=== PATIENT | female | born 1950 | race Caucasian/White ===

== ENCOUNTER 2018-01-22 15:22 | Inpatient (IN) | payer MEDICARE, OTHER ==
[2018-01-22 15:39] LABS: ADD MAN DIFF? NO
[2018-01-22 15:45] LABS: BASOPHILS % 0.5 % (0.0-2.0); EOSINOPHILS # 0.1 10^3/ul (0.0-0.5); EOSINOPHILS % 1.7 % (0.0-7.0); HEMATOCRIT 39.2 % (37.0-47.0); HEMOGLOBIN 13.4 g/dl (12.0-16.0); LYMPHOCYTES # 2.3 10^3/ul (0.8-2.9); LYMPHOCYTES % 37.1 % (15.0-51.0); MEAN CORPUSCULAR HEMOGLOBIN 28.8 pg (29.0-33.0); MEAN CORPUSCULAR HGB CONC 34.2 g/dl (32.0-37.0); MEAN CORPUSCULAR VOLUME 84.1 fl (82.0-101.0); MEAN PLATELET VOLUME 11.3 fl (7.4-10.4); MONOCYTE # 0.4 10^3/ul (0.3-0.9); MONOCYTES % 6.2 % (0.0-11.0); NEUTROPHIL # 3.4 10^3/ul (1.6-7.5); NEUTROPHILS % 54.2 % (39.0-77.0); PLATELET COUNT 262 10^3/UL (140-415); RED BLOOD COUNT 4.66 10^6/ul (4.20-5.40); RED CELL DISTRIBUTION WIDTH 13.2 % (11.5-14.5)
[2018-01-22 15:45] LABS: WHITE BLOOD COUNT 6.3 10^3/ul (4.8-10.8)
[2018-01-22] MEDS: SOD CHLORIDE 0.9% 800 ML IV (15:50)
[2018-01-22 16:11] LABS: TROPONIN-I < 0.012 ng/ml (0.000-0.120)
[2018-01-22 16:19] LABS: MODE ROOM AIR; MetHgb Venous 0.1 %; Sample Type Blood venous; Site VENOUS LINE; Venous COHb 0.3 %; Venous Fraction OxyHgb 78.2 %; Venous Oxygen Sat 78.5 mmHG (55.0-75.0); Venous Total Hemglobin 10.3 g/dl
[2018-01-22 16:39] LABS: ALANINE AMINOTRANSFERASE 19 IU/L (13-69); ALBUMIN/GLOBULIN RATIO 1.42; ALKALINE PHOSPHATASE 77 IU/L (42-121); ANION GAP 14 (5-13); ASPARTATE AMINO TRANSFERASE 22 IU/L (15-46); BILIRUBIN,INDIRECT 0.2 mg/dl (0-1.1); BILIRUBIN,TOTAL 0.2 mg/dl (0.2-1.3); BLOOD UREA NITROGEN 23 mg/dl (7-20); CALCIUM 9.4 mg/dl (8.4-10.2); CARBON DIOXIDE 23 mmol/L (21-31); CHLORIDE 94 mmol/L (97-110); CREATININE 1.21 mg/dl (0.44-1.00); Estimated GFR 44 mL/min (>60); MAGNESIUM 1.8 mg/dl (1.7-2.5); PHOSPHORUS 4.1 mg/dl (2.5-4.9); POTASSIUM 4.5 mmol/L (3.5-5.1); SODIUM 131 mmol/L (135-144); TOTAL PROTEIN 6.8 g/dl (6.1-8.1)
[2018-01-22 16:41] LABS: GLUCOSE 618 mg/dl (70-220)
[2018-01-22 16:54] LABS: ADD UMIC YES; UR ASCORBIC ACID NEGATIVE (NEGATIVE); UR BACTERIA MODERATE /HPF (NONE SEEN); UR BILIRUBIN (Dip) NEGATIVE (NEGATIVE); UR BLOOD (Dip) 2+ mg/dL (NEGATIVE); UR BUDDING YEAST FEW /HPF (NONE SEEN); UR CLARITY TURBID (CLEAR); UR COLOR YELLOW (YELLOW); UR GLUCOSE (Dip) 3+ mg/dL (NEGATIVE); UR KETONES (Dip) NEGATIVE (NEGATIVE); UR LEUKOCYTE ESTERASE (Dip) TRACE Leu/ul (NEGATIVE); UR MUCUS FEW /HPF (NONE SEEN); UR NITRITE (Dip) NEGATIVE (NEGATIVE); UR NONSQUAMOUS EPITHELIAL CELL 2 /HPF (NONE SEEN); UR RBC 86 /HPF (0-5); UR SPECIFIC GRAVITY (Dip) 1.027 (1.003-1.030); UR SQUAMOUS EPITHELIAL CELL FEW /HPF (FEW); UR TOTAL PROTEIN (Dip) NEGATIVE (NEGATIVE); UR UROBILINOGEN (Dip) 2+ mg/dL (NEGATIVE); UR WBC 104 /HPF (0-5)
[2018-01-22] MEDS ORDERED: GLUCAGON 1 MG INJ IM (17:00)
[2018-01-22] MEDS ORDERED: GLUCOSE GEL 15 GRAM TUBE PO ×2 (17:00)
[2018-01-22] MEDS ORDERED: INSULIN ASPART [NOVOLOG] 3 ML PEN SC (17:00)
[2018-01-22] MEDS ORDERED: DEXTROSE 50% 50 ML SYRINGE IV ×2 (17:00)
[2018-01-22] MEDS ORDERED: GLUCOSE GEL 15 GRAM TUBE BUCCAL (17:00)
[2018-01-22] MEDS ORDERED: CEFTRIAXONE 1 GM/50 ML (PMX) 50 ML IVPB (17:05)
[2018-01-22] MEDS: LACTATED RINGER S IV (17:32)
[2018-01-22] MEDS: LEVOFLOXACIN 750MG/D5W (PMX) 150 ML IVPB (17:43)
[2018-01-22] MEDS: INSULIN ASPART [NOVOLOG] 3 ML PEN SC ×2 (17:45→23:00)
[2018-01-22 18:39] LABS: LACTIC ACID 1.6 mmol/L (0.5-2.0)
[2018-01-22] MEDS ORDERED: NACL 0.9% 3 ML SYG IV (19:00)
[2018-01-22] MEDS ORDERED: ACETAMINOPHEN 325 MG TAB PO (19:00)
[2018-01-22] MEDS ORDERED: ONDANSETRON 4 MG INJ IV (19:00)
[2018-01-22] MEDS ORDERED: HYDROCODONE/APAP (5/325) TAB PO (19:00)
[2018-01-22] MEDS ORDERED: HEPARIN 5,000 UNIT/0.5 ML VIAL (22:32)
[2018-01-22] MEDS: HEPARIN 5,000 UNIT/1 ML VIAL SC (22:55)
[2018-01-22] MEDS: SOD CHLORIDE 0.9% 1,000 ML IV (23:00)
[2018-01-22] MEDS: INSULIN GLARGINE [LANTus] (100 UNITS/ML) SYG SC (23:34)
[2018-01-23 00:06] LABS: LACTIC ACID 1.5 mmol/L (0.5-2.0)
[2018-01-23] MEDS: ACCU-CHEK XX (02:00)
[2018-01-23] MEDS: SOD CHLORIDE 0.9% 1,000 ML IV ×2 (04:35→09:01)
[2018-01-23 05:21] LABS: ADD MAN DIFF? NO
[2018-01-23 05:28] LABS: BASOPHILS % 0.7 % (0.0-2.0); EOSINOPHILS # 0.2 10^3/ul (0.0-0.5); EOSINOPHILS % 2.8 % (0.0-7.0); HEMATOCRIT 36.2 % (37.0-47.0); HEMOGLOBIN 12.4 g/dl (12.0-16.0); LYMPHOCYTES # 2.3 10^3/ul (0.8-2.9); LYMPHOCYTES % 43.1 % (15.0-51.0); MEAN CORPUSCULAR HEMOGLOBIN 28.8 pg (29.0-33.0); MEAN CORPUSCULAR HGB CONC 34.3 g/dl (32.0-37.0); MEAN CORPUSCULAR VOLUME 84.2 fl (82.0-101.0); MEAN PLATELET VOLUME 11.3 fl (7.4-10.4); MONOCYTE # 0.4 10^3/ul (0.3-0.9); MONOCYTES % 7.2 % (0.0-11.0); NEUTROPHIL # 2.5 10^3/ul (1.6-7.5); PLATELET COUNT 239 10^3/UL (140-415); RED CELL DISTRIBUTION WIDTH 13.2 % (11.5-14.5)
[2018-01-23 05:28] LABS: WHITE BLOOD COUNT 5.4 10^3/ul (4.8-10.8)
[2018-01-23 06:01] LABS: ALANINE AMINOTRANSFERASE 20 IU/L (13-69); ALBUMIN 3.2 g/dl (3.3-4.9); ALBUMIN/GLOBULIN RATIO 1.18; ALKALINE PHOSPHATASE 51 IU/L (42-121); ANION GAP 6 (5-13); ASPARTATE AMINO TRANSFERASE 17 IU/L (15-46); BILIRUBIN,INDIRECT 0.4 mg/dl (0-1.1); BILIRUBIN,TOTAL 0.4 mg/dl (0.2-1.3); BLOOD UREA NITROGEN 15 mg/dl (7-20); CALCIUM 8.2 mg/dl (8.4-10.2); CARBON DIOXIDE 27 mmol/L (21-31); CHLORIDE 105 mmol/L (97-110); CREATININE 0.77 mg/dl (0.44-1.00); Estimated GFR > 60 mL/min (>60); GLUCOSE 197 mg/dl (70-220); MAGNESIUM 1.6 mg/dl (1.7-2.5); POTASSIUM 3.4 mmol/L (3.5-5.1); SODIUM 138 mmol/L (135-144); TOTAL PROTEIN 5.9 g/dl (6.1-8.1)
[2018-01-23] MEDS: INSULIN ASPART [NOVOLOG] 3 ML PEN SC ×7 (08:08→21:43)
[2018-01-23] MEDS ORDERED: HEPARIN 5,000 UNIT/0.5 ML VIAL ×2 (08:39→21:34)
[2018-01-23] MEDS: CLOPIDOGREL 75 MG TAB PO (08:42)
[2018-01-23] MEDS: HEPARIN 5,000 UNIT/1 ML VIAL SC ×2 (08:43→21:44)
[2018-01-23] MEDS: POTASSIUM CHLORIDE (SR) 20 MEQ TAB PO (08:56)
[2018-01-23] MEDS: MAGNESIUM OXIDE 400 MG TAB PO (08:57)
[2018-01-23 10:53] LABS: ADD UMIC YES; UR ASCORBIC ACID NEGATIVE (NEGATIVE); UR BACTERIA FEW /HPF (NONE SEEN); UR BILIRUBIN (Dip) NEGATIVE (NEGATIVE); UR BLOOD (Dip) 1+ mg/dL (NEGATIVE); UR CLARITY CLEAR (CLEAR); UR COLOR YELLOW (YELLOW); UR GLUCOSE (Dip) 3+ mg/dL (NEGATIVE); UR KETONES (Dip) NEGATIVE (NEGATIVE); UR LEUKOCYTE ESTERASE (Dip) TRACE Leu/ul (NEGATIVE); UR MUCUS FEW /HPF (NONE SEEN); UR NITRITE (Dip) NEGATIVE (NEGATIVE); UR RBC 1 /HPF (0-5); UR SPECIFIC GRAVITY (Dip) 1.009 (1.003-1.030); UR TOTAL PROTEIN (Dip) NEGATIVE (NEGATIVE); UR UROBILINOGEN (Dip) NEGATIVE (NEGATIVE); UR WBC 13 /HPF (0-5)
[2018-01-23] MEDS: metFORMIN 500 MG TAB PO (17:29)
[2018-01-23] MEDS: LEVOFLOXACIN 750MG/D5W (PMX) 150 ML IVPB (17:29)
[2018-01-23] MEDS: INSULIN GLARGINE [LANTus] (100 UNITS/ML) SYG SC (21:43)
[2018-01-24] MEDS: ACCU-CHEK XX (02:47)
[2018-01-24 06:22] LABS: ADD MAN DIFF? NO; BASOPHILS % 0.7 % (0.0-2.0); EOSINOPHILS # 0.2 10^3/ul (0.0-0.5); EOSINOPHILS % 3.2 % (0.0-7.0); HEMATOCRIT 38.4 % (37.0-47.0); LYMPHOCYTES % 50.9 % (15.0-51.0); MEAN CORPUSCULAR HEMOGLOBIN 28.7 pg (29.0-33.0); MEAN CORPUSCULAR HGB CONC 33.9 g/dl (32.0-37.0); MEAN CORPUSCULAR VOLUME 84.8 fl (82.0-101.0); MEAN PLATELET VOLUME 11.5 fl (7.4-10.4); MONOCYTE # 0.4 10^3/ul (0.3-0.9); MONOCYTES % 6.5 % (0.0-11.0); NEUTROPHIL # 2.3 10^3/ul (1.6-7.5); NEUTROPHILS % 38.4 % (39.0-77.0); PLATELET COUNT 240 10^3/UL (140-415); RED BLOOD COUNT 4.53 10^6/ul (4.20-5.40); RED CELL DISTRIBUTION WIDTH 13.2 % (11.5-14.5)
[2018-01-24 06:51] LABS: ANION GAP 8 (5-13); BLOOD UREA NITROGEN 17 mg/dl (7-20); CALCIUM 9.1 mg/dl (8.4-10.2); CARBON DIOXIDE 26 mmol/L (21-31); CHLORIDE 104 mmol/L (97-110); CREATININE 1.07 mg/dl (0.44-1.00); Estimated GFR 51 mL/min (>60); GLUCOSE 165 mg/dl (70-220); MAGNESIUM 1.6 mg/dl (1.7-2.5); PHOSPHORUS 3.9 mg/dl (2.5-4.9); SODIUM 138 mmol/L (135-144)
[2018-01-24] MEDS: INSULIN ASPART [NOVOLOG] 3 ML PEN SC ×7 (08:29→21:00)
[2018-01-24] MEDS ORDERED: HEPARIN 5,000 UNIT/0.5 ML VIAL ×2 (08:41→20:27)
[2018-01-24] MEDS: metFORMIN 500 MG TAB PO (08:44)
[2018-01-24] MEDS: CLOPIDOGREL 75 MG TAB PO (08:45)
[2018-01-24] MEDS: HEPARIN 5,000 UNIT/1 ML VIAL SC ×2 (08:47→20:54)
[2018-01-24] MEDS: SOD CHLORIDE 0.9% 1,000 ML IV ×2 (10:24→20:52)
[2018-01-24] MEDS ORDERED: LEVOFLOXACIN 750MG/D5W (PMX) 150 ML IVPB (18:00)
[2018-01-24] MEDS: INSULIN GLARGINE [LANTus] (100 UNITS/ML) SYG SC (20:55)
[2018-01-25] MEDS: ACCU-CHEK XX (02:00)
[2018-01-25 05:29] LABS: ADD MAN DIFF? NO
[2018-01-25 05:31] LABS: WHITE BLOOD COUNT 7.2 10^3/ul (4.8-10.8)
[2018-01-25 05:31] LABS: BASOPHIL # 0.1 10^3/ul (0.0-0.1); BASOPHILS % 0.8 % (0.0-2.0); EOSINOPHILS # 0.2 10^3/ul (0.0-0.5); EOSINOPHILS % 2.8 % (0.0-7.0); HEMATOCRIT 39.7 % (37.0-47.0); HEMOGLOBIN 13.4 g/dl (12.0-16.0); LYMPHOCYTES # 3.1 10^3/ul (0.8-2.9); LYMPHOCYTES % 43.5 % (15.0-51.0); MEAN CORPUSCULAR HEMOGLOBIN 29.1 pg (29.0-33.0); MEAN CORPUSCULAR HGB CONC 33.8 g/dl (32.0-37.0); MEAN CORPUSCULAR VOLUME 86.1 fl (82.0-101.0); MEAN PLATELET VOLUME 10.8 fl (7.4-10.4); MONOCYTE # 0.5 10^3/ul (0.3-0.9); MONOCYTES % 6.4 % (0.0-11.0); NEUTROPHIL # 3.3 10^3/ul (1.6-7.5); NEUTROPHILS % 46.2 % (39.0-77.0); PLATELET COUNT 224 10^3/UL (140-415); RED BLOOD COUNT 4.61 10^6/ul (4.20-5.40); RED CELL DISTRIBUTION WIDTH 13.6 % (11.5-14.5)
[2018-01-25 05:56] LABS: ANION GAP 7 (5-13); BLOOD UREA NITROGEN 21 mg/dl (7-20); CALCIUM 9.5 mg/dl (8.4-10.2); CARBON DIOXIDE 25 mmol/L (21-31); CHLORIDE 107 mmol/L (97-110); CREATININE 0.97 mg/dl (0.44-1.00); Estimated GFR 57 mL/min (>60); GLUCOSE 187 mg/dl (70-220); MAGNESIUM 1.6 mg/dl (1.7-2.5); POTASSIUM 4.4 mmol/L (3.5-5.1); SODIUM 139 mmol/L (135-144)
[2018-01-25] MEDS: SOD CHLORIDE 0.9% 1,000 ML IV (06:27)
[2018-01-25] MEDS ORDERED: HEPARIN 5,000 UNIT/0.5 ML VIAL (08:12)
[2018-01-25] MEDS: CLOPIDOGREL 75 MG TAB PO (08:17)
[2018-01-25] MEDS: INSULIN ASPART [NOVOLOG] 3 ML PEN SC ×4 (08:18→13:28)
[2018-01-25] MEDS: HEPARIN 5,000 UNIT/1 ML VIAL SC (08:20)
[2018-01-25] MEDS: MAGNESIUM OXIDE 400 MG TAB PO (09:43)
[2018-01-25] MEDS: CEFEPIME 1GM/50 ML (PMX) 50 ML IVPB (09:44)
[2018-01-25] MEDS ORDERED: LEVOFLOXACIN 500MG/D5W (PMX) 100 ML IVPB (10:00)
== END 2018-01-25 15:10 | DRG 638 ==
LOC: E/R 15:22 → 2NE 17:18
DX: E11.65 Type 2 diabetes mellitus with hyperglycemia (principal); N39.0 Urinary tract infection, site not specified; N17.9 Acute kidney failure, unspecified; N12 Tubulo-interstitial nephritis, not specified as acute or chronic; I10 Essential (primary) hypertension; F03.90 Unspecified dementia, unspecified severity, without behavioral disturbance, psychotic disturbance, mood disturbance, and anxiety; Z79.02 Long term (current) use of antithrombotics/antiplatelets
CPT/HCPCS: 36415; 71045; 76775; 80048; 80053; 81001; 82803; 82962; 83036; 83605; 83735; 84100; 84484; 85025; 87040; 87086; 93005; 97161; 97165; 97535; 99285-25